=== PATIENT | male | born 1990 | race Caucasian/White ===

== ENCOUNTER 2019-06-29 | Emergency (ER) | payer MEDICAID ==
[2019-06-29 13:12] LABS: URINE BILIRUBIN - DIPSTICK NEGATIVE (NEGATIVE); URINE BLOOD DIPSTICK NEGATIVE (NEGATIVE); URINE COLOR YELLOW; URINE GLUCOSE - DIPSTICK NEGATIVE (NEGATIVE); URINE KETONE NEGATIVE (NEGATIVE); URINE LEUK ESTERASE NEGATIVE (NEGATIVE); URINE NITRITE - DIPSTICK NEGATIVE (Negative); URINE PH 7.5 (4.5-8.0); URINE PROTEIN - DIPSTICK NEGATIVE (NEG-TRACE); URINE UROBILINOGEN - DIPSTICK 0.2 E.U./dL (0.2)
[2019-06-29 13:16] LABS: HEMOGLOBIN 14.5 g/dl (14.0-18.0); IMMATURE GRANULOCYTES 0.3 % (0.0-5.0); MEAN CELL VOLUME 93.8 fL CALC (80.0-100.0); MEAN CORPUSCULAR HGB 30.9 pG CALC (26.0-32.0); NEUT# 4.31 thou/uL (1.82-7.42); RED BLOOD COUNT 4.69 mill/uL (4.70-6.10); RED CELL DISTRI WIDTH 12.5 % (11.5-15.5)
[2019-06-29 13:35] LABS: ALBUMIN 4.4 g/dL (3.2-5.0); ALKALINE PHOSPHATASE 66 u/l (38-126); ANION GAP 14 (6-22 (CALC)); BILIRUBIN, TOTAL 0.5 mg/dL (0.0-1.4); BUN 12 mg/dL (9-20); BUN/CREATININE RATIO 18 (12-20 (CALC)); CARBON DIOXIDE 25 mmol/l (22-30); CHLORIDE 105 mmol/l (95-108); CPK 95 u/l (52-200); CREATININE 0.6 mg/dL (0.7-1.3); GFR > 60 ML/MIN (>=60 (CALC)); GFR FOR AFR.AMER. > 60 ML/MIN (>=60 (CALC)); LIPASE 91 u/l (23-300); POTASSIUM 4.5 mmol/l (3.5-5.1); SGOT/AST 23 u/l (17-59); SODIUM 139 mmol/l (137-146); TOTAL PROTEIN 7.6 g/dL (6.3-8.2)
[2019-06-29] MEDS ORDERED: ONDANSETRON4 MG PO (14:16)
== END 2019-06-29 14:46 | disposition home or self-care (01) ==
DX: R11.2 Nausea with vomiting, unspecified (principal); R19.7 Diarrhea, unspecified

== ENCOUNTER 2019-09-09 | Emergency (ER) | payer OTHER, MEDICAID ==
[~2019-09-09] MED LIST: ONDANSETRON4 MG PO
== END 2019-09-09 15:28 | disposition home or self-care (01) ==
DX: J06.9 Acute upper respiratory infection, unspecified (principal); Z20.828 Contact with and (suspected) exposure to other viral communicable diseases

== ENCOUNTER 2020-03-06 06:15 | Emergency (ER) | payer MEDICAID ==
[~2020-03-06] VITALS: Ht 182.9 cm; Wt 83.0 kg
[2020-03-06 07:41] LABS: HEMOGLOBIN 14.6 g/dl (14.0-18.0); IMMATURE GRANULOCYTES 0.3 % (0.0-5.0); MEAN CELL VOLUME 95.9 fL CALC (80.0-100.0); MEAN CORPUSCULAR HGB 31.1 pG CALC (26.0-32.0); MEAN CORPUSCULAR HGB CONC 32.4 g/dL CAL (32.0-36.0); NEUT# 4.31 thou/uL (1.82-7.42); RED BLOOD COUNT 4.69 mill/uL (4.70-6.10); RED CELL DISTRI WIDTH 12.5 % (11.5-15.5)
[2020-03-06 08:01] LABS: ANION GAP 10 (6-22 (CALC)); BUN 11 mg/dL (9-20); BUN/CREATININE RATIO 15 (12-20 (CALC)); CARBON DIOXIDE 29 mmol/l (22-30); CHLORIDE 104 mmol/l (95-108); CREATININE 0.7 mg/dL (0.7-1.3); GFR > 60 ML/MIN (>=60 (CALC)); GFR FOR AFR.AMER. > 60 ML/MIN (>=60 (CALC)); POTASSIUM 4.5 mmol/l (3.5-5.1); SODIUM 139 mmol/l (137-146)
[2020-03-06] MEDS ORDERED: AMOX/K CLAV875 M1 PO (08:17)
[2020-03-06 08:24] VITALS: BP 125/82
== END 2020-03-06 08:31 | disposition home or self-care (01) ==
LOC: ED 06:15
PROVIDERS: Family Medicine
DX: F17.210 Nicotine dependence, cigarettes, uncomplicated (principal); R59.0 Localized enlarged lymph nodes
CPT/HCPCS: Q9967

== ENCOUNTER 2020-11-12 14:07 | Emergency (ER) | payer OTHER, MEDICAID ==
[~2020-11-12] VITALS: Ht 182.9 cm; Wt 90.0 kg
[~2020-11-12 14:07] MED LIST changes: +AMOX/K CLAV875 M1 PO
[2020-11-12] MEDS ORDERED: IBUPROFEN600 MG PO (16:50)
[2020-11-12] MEDS ORDERED: FLEXERIL5 M1 PO (16:50)
[2020-11-12 17:16] VITALS: BP 144/88
== END 2020-11-12 17:16 | disposition home or self-care (01) | DRG 552 ==
LOC: ED 14:07
DX: S16.1XXA Strain of muscle, fascia and tendon at neck level, initial encounter (principal); S29.012A Strain of muscle and tendon of back wall of thorax, initial encounter; S39.012A Strain of muscle, fascia and tendon of lower back, initial encounter; F17.200 Nicotine dependence, unspecified, uncomplicated; V43.52XA Car driver injured in collision with other type car in traffic accident, initial encounter

== ENCOUNTER 2021-01-07 17:34 | Emergency (ER) | payer MEDICAID ==
[~2021-01-07] VITALS: Ht 182.9 cm; Wt 82.0 kg
[~2021-01-07 17:34] MED LIST changes: +FLEXERIL5 M1 PO; +IBUPROFEN600 MG PO
[2021-01-07 18:13] LABS: HEMATOCRIT 45.4 % (39.0-50.0); IMMATURE GRANULOCYTES 0.1 % (0.0-5.0); MEAN CELL VOLUME 94.8 fL CALC (80.0-100.0); MEAN CORPUSCULAR HGB 31.3 pG CALC (26.0-32.0); NEUT# 9.05 thou/uL (1.82-7.42); RED BLOOD COUNT 4.79 mill/uL (4.70-6.10); RED CELL DISTRI WIDTH 12.2 % (11.5-15.5)
[2021-01-07 18:22] LABS: ALBUMIN 4.4 g/dL (3.2-5.0); ALKALINE PHOSPHATASE 68 u/l (38-126); ANION GAP 14 (6-22 (CALC)); BUN 14 mg/dL (9-20); BUN/CREATININE RATIO 17 (12-20 (CALC)); CARBON DIOXIDE 26 mmol/l (22-30); CHLORIDE 100 mmol/l (95-108); CREATININE 0.8 mg/dL (0.7-1.3); GFR > 60 ML/MIN (>=60 (CALC)); GFR FOR AFR.AMER. > 60 ML/MIN (>=60 (CALC)); LIPASE 100 u/l (23-300); POTASSIUM 3.8 mmol/l (3.5-5.1); SGOT/AST 37 u/l (17-59); SODIUM 137 mmol/l (137-146); TOTAL PROTEIN 7.7 g/dL (6.3-8.2)
[2021-01-07 18:29] LABS: BILIRUBIN, TOTAL 0.8 mg/dL (0.0-1.4)
[2021-01-07 19:38] LABS: URINE BILIRUBIN - DIPSTICK NEGATIVE (NEGATIVE); URINE BLOOD DIPSTICK NEGATIVE (NEGATIVE); URINE COLOR YELLOW; URINE GLUCOSE - DIPSTICK NEGATIVE (NEGATIVE); URINE KETONE NEGATIVE (NEGATIVE); URINE LEUK ESTERASE NEGATIVE (NEGATIVE); URINE PROTEIN - DIPSTICK NEGATIVE (NEG-TRACE); URINE SPECIFIC GRAVITY 1.015
[2021-01-07 19:44] LABS: URINE NITRITE - DIPSTICK NEGATIVE (Negative)
[2021-01-07] MEDS ORDERED: VOLTAREN75 MG PO (20:00)
[2021-01-07 20:13] VITALS: BP 99/58
== END 2021-01-07 20:13 | disposition home or self-care (01) ==
LOC: ED 17:34
DX: R07.89 Other chest pain (principal); Z20.822 Contact with and (suspected) exposure to COVID-19

== ENCOUNTER 2021-05-15 06:39 | Emergency (ER) | payer OTHER, MEDICAID ==
[~2021-05-15] VITALS: Ht 182.9 cm; Wt 82.0 kg
[~2021-05-15 06:39] MED LIST changes: +VOLTAREN75 MG PO
[2021-05-15] MEDS ORDERED: CEPHALEXIN500 MG PO ×2 (07:56→09:27)
[2021-05-15 08:02] VITALS: BP 116/70
== END 2021-05-15 08:15 | disposition home or self-care (01) | DRG 605 ==
LOC: ED 06:39
PROC: 0HQFXZZ Repair Right Hand Skin, External Approach (ICD-10-PCS; principal; 2021-05-15)
DX: S61.011A Laceration without foreign body of right thumb without damage to nail, initial encounter (principal); W26.8XXA Contact with other sharp object(s), not elsewhere classified, initial encounter; Y99.0 Civilian activity done for income or pay

== ENCOUNTER 2021-11-26 06:49 | Emergency (ER) | payer MEDICAID ==
[~2021-11-26] VITALS: Ht 182.9 cm; Wt 81.8 kg
[~2021-11-26 06:49] MED LIST changes: +CEPHALEXIN500 MG PO
[2021-11-26 07:09] VITALS: BP 117/82
== END 2021-11-26 07:15 | disposition left against medical advice (07) ==
LOC: ED 06:49
DX: M54.2 Cervicalgia (principal); Z91.19 Patient's noncompliance with other medical treatment and regimen

== ENCOUNTER 2022-02-25 07:09 | Emergency (ER) | payer MEDICAID ==
[~2022-02-25] VITALS: Ht 182.9 cm; Wt 81.8 kg
[2022-02-25 07:14] VITALS: BP 137/85
[2022-02-25 07:40] LABS: HEMATOCRIT 44.2 % (39.0-50.0); HEMOGLOBIN 14.7 g/dl (14.0-18.0); IMMATURE GRANULOCYTES 0.2 % (0.0-5.0); MEAN CELL VOLUME 96.1 fL CALC (80.0-100.0); MEAN CORPUSCULAR HGB CONC 33.3 g/dL CAL (32.0-36.0); NEUT# 9.82 thou/uL (1.82-7.42); RED BLOOD COUNT 4.6 mill/uL (4.70-6.10); RED CELL DISTRI WIDTH 12.6 % (11.5-15.5)
[2022-02-25 07:48] LABS: URINE BILIRUBIN - DIPSTICK NEGATIVE (NEGATIVE); URINE BLOOD DIPSTICK NEGATIVE (NEGATIVE); URINE COLOR YELLOW; URINE GLUCOSE - DIPSTICK NEGATIVE (NEGATIVE); URINE KETONE NEGATIVE (NEGATIVE); URINE LEUK ESTERASE NEGATIVE (NEGATIVE); URINE PROTEIN - DIPSTICK NEGATIVE (NEG-TRACE); URINE SPECIFIC GRAVITY <=1.005; URINE UROBILINOGEN - DIPSTICK 0.2 E.U./dL (0.2)
[2022-02-25 07:54] LABS: URINE NITRITE - DIPSTICK NEGATIVE (Negative)
[2022-02-25 08:11] LABS: ALBUMIN 4.2 g/dL (3.2-5.0); ALKALINE PHOSPHATASE 58 u/l (38-126); ANION GAP 12 (6-22 (CALC)); BUN 12 mg/dL (9-20); BUN/CREATININE RATIO 16 (12-20 (CALC)); CARBON DIOXIDE 26 mmol/l (22-30); CHLORIDE 106 mmol/l (95-108); CREATININE 0.7 mg/dL (0.7-1.3); GFR FOR AFR.AMER. > 60 ML/MIN (>=60 (CALC)); GFR OTHER RACES > 60 ML/MIN (>=60 (CALC)); POTASSIUM 4.1 mmol/l (3.5-5.1); SGOT/AST 64 u/l (17-59); SODIUM 139 mmol/l (137-146); TOTAL PROTEIN 7.2 g/dL (6.3-8.2)
[2022-02-25 08:13] LABS: BILIRUBIN, TOTAL 0.4 mg/dL (0.0-1.4)
[2022-02-25] MEDS ORDERED: VOLTAREN1%GEL TOP ×2 (08:19→08:48)
[2022-02-25] MEDS ORDERED: FLEXERIL5 M1 PO ×2 (08:19→08:48)
[2022-02-25 08:26] VITALS: BP 115/77
== END 2022-02-25 08:29 | disposition home or self-care (01) ==
LOC: ED 07:09
PROVIDERS: Family Medicine
DX: M54.9 Dorsalgia, unspecified (principal); R10.11 Right upper quadrant pain; R10.31 Right lower quadrant pain; F17.210 Nicotine dependence, cigarettes, uncomplicated

== ENCOUNTER 2022-05-09 05:52 | Emergency (ER) | payer MEDICAID ==
[2022-05-09] VITALS (11 sets, daily range): BP systolic 115–134; BP diastolic 69–121
[~2022-05-09] VITALS: Ht 182.9 cm; Wt 77.0 kg
[~2022-05-09 05:52] MED LIST changes: +VOLTAREN1%GEL TOP
[2022-05-09 06:38] LABS: BASO% 0.4 % (0-3); HEMATOCRIT 42.1 % (39.0-50.0); HEMOGLOBIN 14.7 g/dl (14.0-18.0); IMMATURE GRANULOCYTES 0.2 % (0.0-5.0); LYMPH% 11.2 % (15-41); MEAN CELL VOLUME 93.8 fL CALC (80.0-100.0); MEAN CORPUSCULAR HGB 32.7 pG CALC (26.0-32.0); MEAN CORPUSCULAR HGB CONC 34.9 g/dL CAL (32.0-36.0); MONO% 11.9 % (2-13); NEUT# 13.26 thou/uL (1.82-7.42); NEUT% 75.3 % (42-76); RED BLOOD COUNT 4.49 mill/uL (4.70-6.10); RED CELL DISTRI WIDTH 12.5 % (11.5-15.5)
[2022-05-09 06:59] LABS: ALBUMIN 4.4 g/dL (3.2-5.0); ALKALINE PHOSPHATASE 74 u/l (38-126); ANION GAP 13 (6-22 (CALC)); BILIRUBIN, TOTAL 0.4 mg/dL (0.0-1.4); BUN 13 mg/dL (9-20); BUN/CREATININE RATIO 18 (12-20 (CALC)); CARBON DIOXIDE 28 mmol/l (22-30); CHLORIDE 106 mmol/l (95-108); CREATININE 0.7 mg/dL (0.7-1.3); GFR FOR AFR.AMER. > 60 ML/MIN (>=60 (CALC)); GFR OTHER RACES > 60 ML/MIN (>=60 (CALC)); POTASSIUM 4.1 mmol/l (3.5-5.1); SGOT/AST 30 u/l (17-59); SODIUM 143 mmol/l (137-146); TOTAL PROTEIN 7.4 g/dL (6.3-8.2)
== END 2022-05-09 14:00 | disposition short-term general hospital (02) ==
LOC: ED 05:52
PROVIDERS: Emergency Medicine
DX: J02.0 Streptococcal pharyngitis (principal); F17.200 Nicotine dependence, unspecified, uncomplicated; Z20.822 Contact with and (suspected) exposure to COVID-19
CPT/HCPCS: Q9967